=== PATIENT | male | born 1950 | race Caucasian/White ===

== ENCOUNTER 2020-02-22 11:00 | Emergency (ER) | payer MEDICAID, OTHER ==
[~2020-02-22] VITALS: Ht 170.2 cm; Wt 82.0 kg
[2020-02-22] MEDS ORDERED: CALCIUM GLUCONATE 100MG/ML 10ML VIAL IV ONE (11:30)
[2020-02-22 11:34] LABS: HEMATOCRIT. 30.4 % (42.0-52.0); MEAN CORPUSCULAR VOLUME 85.4 fL (80.0-94.0); MEAN PLATELET VOLUME 8.5 fl (7.4-10.4); PLATELET 200 x1000/uL (130-400); RED BLOOD CELL COUNT 3.56 mill/uL (4.7-6.1); RED CELL DISTRIBUTION WIDTH 18.2 % (11.6-14.6)
[2020-02-22 11:39] LABS: CHLORIDE 95 mEq/L (98-107)
[2020-02-22 12:25] LABS: PLATELET ESTIMATE NORMAL
[2020-02-22 13:50] LABS: INR 1.1; PARTIAL THROMBOPLASTIN TIME 33.6 sec (23.4-31.0)
[2020-02-22] MEDS ORDERED: SEVELAMER CARBONATE 800 MG TABLET PO SCH ×2 (14:00→17:00)
[2020-02-22] MEDS ORDERED: ONDANSETRON HCL 4MG/2ML INJ IV ONE (14:15)
[2020-02-22] MEDS ORDERED: MORPHINE SULFATE 4 MG/ML CPJ (NOT FOR IM USE) IV ONE (14:15)
[2020-02-22] MEDS ORDERED: GLUCAGON,HUMAN RECOMBINANT 1MG/VIAL IV ONE (14:30)
[2020-02-22] MEDS ORDERED: PIPERACILLIN/TAZ 3.375G PREMIX 50 ML IV ONE (14:30)
[2020-02-22] MEDS ORDERED: HYDROCODONE/ACETAMINOPHEN 5/325MG TABLET PO ONE (14:45)
[2020-02-22 15:00] VITALS: BP 113/53
[2020-02-22] MEDS ORDERED: IOHEXOL-350 100 ML BOTTLE ONE (16:45)
[2020-02-22] MEDS ORDERED: LOSARTAN POTASSIUM 50 MG TABLET PO SCH (17:00)
== END 2020-02-22 17:09 | disposition short-term general hospital (02) ==
LOC: ER 11:26 → CANBEDREQ 17:05 → ER 17:09
DX: R42 Dizziness and giddiness (principal); R00.1 Bradycardia, unspecified; I96 Gangrene, not elsewhere classified; I13.2 Hypertensive heart and chronic kidney disease with heart failure and with stage 5 chronic kidney disease, or end stage renal disease; N18.6 End stage renal disease; I50.9 Heart failure, unspecified; Z99.2 Dependence on renal dialysis
CPT/HCPCS: 36415; 71045; 72191; 73706; 80053; 83880; 84443; 84484; 85025; 85610; 85730; 93005; 96374; 96375; 99285; J0610; J1610; J2270; J2405; J2543; Q9967; Z7610